=== PATIENT | female | born 1970 | race Caucasian/White ===

== ENCOUNTER 2021-11-23 11:48 | Observation (INO) ==
[2021-11-23] MEDS ORDERED: SODIUM CHLORIDE 0.9% 500 ML IV ONE (12:00)
[2021-11-23 12:35] LABS: Basophils # (auto) 0.02 K/uL (0-0.2); Basophils % (auto) 0.2 %; Eosinophils # (auto) 0.24 K/uL (0-0.5); Eosinophils % (auto) 2.6 %; Hematocrit (blood only) 42.4 % (37-47); Hemoglobin 14.3 g/dL (12.0-16.0); Immature Granulocytes # (auto) 0.03 K/uL (0.00-0.02); Immature Granulocytes % (auto) 0.3 %; Lymphocytes # (auto) 2.83 K/uL (1.2-3.4); Lymphocytes % (auto) 30.9 %; Mean Corpuscular Hemoglobin 30.8 pg (25-34); Mean Corpuscular Hgb Conc 33.7 g/dL (32-36); Mean Corpuscular Volume 91.2 fL (80-100); Mean Platelet Volume 9.2 fL (7.4-10.4); Monocytes # (auto) 0.67 K/uL (0.11-0.59); Monocytes % (auto) 7.3 %; Neutrophils # (auto) 5.38 K/uL (1.4-6.5); Neutrophils % (auto) 58.7 %; Platelet Count 361 K/uL (130-400); RDW Coefficient of Variation 13.6 % (11.5-14.5); RDW Standard Deviation 44.7 fL (36.4-46.3); Red Blood Count 4.65 M/uL (4.2-5.4); White Blood Count 9.17 K/uL (4.8-10.8)
[2021-11-23 12:55] LABS: Albumin Globulin Ratio 1.2 (0.9-2); Albumin Level 4.1 gm/dl (3.4-5.0); Bilirubin,Total 0.5 mg/dl (0.2-1.0); Calcium 9.5 mg/dl (8.5-10.1); Creatinine Clr Calc Pharmacy 79.5 ml/min; Est GFR (African American) 70.2 ml/min; Est GFR (Non-African American) 60.6 ml/min; Globulin 3.4 gm/dl (2.5-4.0); Magnesium 1.8 mg/dl (1.7-2.4); Phosphorus 2.3 mg/dl (2.5-4.9); Potassium 4.1 mmol/L (3.5-5.1); Total Protein 7.5 gm/dl (6.0-8.3)
--- NOTE | 2021-11-23 13:27 | XRay Report ---
XR chest 1V portable HISTORY: 51 years-old Female Chest Pain acute atypical chest pain COMPARISON: CTA chest 11/22/2021 TECHNIQUE: Portable AP view of the chest FINDINGS: The cardiac silhouette is mildly enlarged. Atherosclerosis of the thoracic aorta. Mild linear atelect asis/scarring of the lingula again noted. No pneumothorax, pleural effusion, airspace consolidation o r overt pulmonary edema. Bones appear grossly intact. IMPRESSION: Cardiomegaly without acute process. ACT 112: Negative or not required by law. The above report was generated using voice recognition software. It may contain grammatical, syntax o r spelling errors. Electronically signed by: Carloz Owens M.D. 11/23/2021 1:25 PM
[2021-11-23] MEDS ORDERED: ASPIRIN CHEW 324 MG PO STA (15:04)
--- NOTE | 2021-11-23 16:13 | Emergency Department Note ---
Impression & Plan Exertional shortness of breath, Exertional chest pain, Family history of coronary artery disease ED Provider Note NAME: ASHWIN MUNROE AGE: 51 SEX: F ARRIVES VIA: Walk-In INFORMANT: Patient ED PROVIDER(S): Mario Alberto Huynh MD CHIEF COMPLAINT: Chest pain PLAN: Disposition: Admit MEDICAL DECISION MAKING: The patient is a pleasant 51-year-old woman with a past medical history of IDDM 2, hypertension, GERD, anxiety who presents emergency department referred from her PCPs office for ongoing exertional dyspnea with intermittent exertional chest pressure and back pain. Patient recently had a CT of the chest that was negative. However she reports progressive worsening of symptoms over the past 2 months or more. The patient did have COVID-19 in July and admits that her symptoms have progressed since then. She reports a family history of cardiac disease. She denies any recent fevers, chills, cough, congestion, nausea or vomiting. She reports her symptoms today flared this morning then went away and then returned. She reports at times they are associate with exertion but then other times she is resting. She reports frequently having back pain when she stands up but improves when she sits down and rests. She reports last night she woke from sleep with both chest and back pain. On arrival the patient is in no acute distress, afebrile, BP 150s/90s and otherwise stable vital signs. Mild reproducible anterior CW and mid back disco mfort. EKG does not demonstrate overt acute ischemia. Chest x-ray is negative for acute cardiopulmonary process. WBC H/H and platelets within normal limits. Chemistry without metabolic acidosis. Electrolytes and LFTs without significant abnormality. Initial high- sensitivity troponin 6.5 within normal limits. Lipase is not elevated. TSH within normal limits. Covid-19 RNA, NAAT negative. Heart Score 4, moderate risk. Given the patient's report of worsening exertional symptoms in setting of risk factors reasonable to proceed with further cardiac evaluation. Appreciate consultation with [facility], Dr. Marroquin, and we agreed with plan for admission at this time. Patient agrees with admission plan. Case was discussed with Dr. Epps, [facility] [place] hospitalist, who will evaluate the patient for admission. Triage Nursing notes reviewed and agree them. Prior medical records reviewed Vital Signs: reviewed and remarkable for hypertension. Differential diagnosis: Cardiac ischemia, aortic dissection, pulmonary embolism, pneumothorax, pneumonia, pericarditis, myocarditis, esophageal rupture, GERD, cholecystitis, pancreatitis, musculoskeletal, as well as other pathologies. ER treatment provided: See below. Diagnostics interpreted by me: ECG 1207: Normal sinus rhythm, 85 bpm, no ectopy, no overt ST elevation or depression, QTC 445, QRS 86 ECG 1355: Normal sinus rhythm, 76 bpm, no ectopy, no overt ST elevation or depression, QTC 456, QRS 86 Cardiac Monitoring: An order for continuous cardiac monitoring was placed and demonstrated normal sinus rhythm, 85 bpm, no ectopy. Laboratory studies: See below Imaging studies: See below Consultation(s): Dr. Marroquin, [facility] [facility]. Dr. Epps, [facility] [place] hospitalist. HPI: The patient is a pleasant 51-year-old woman with a past medical history of IDDM 2, hypertension, GERD, anxiety who presents emergency department referred from her PCPs office for ongoing exertional dyspnea with intermittent exertional chest pressure and back pain. Patient recently had a CT of the chest that was negative. However she reports progressive worsening of symptoms over the past 2 months or more. The patient did have COVID-19 in July and admits that her symptoms have progressed since then. She reports a family history of cardiac disease. She denies any recent fevers, chills, cough, congestion, nausea or vomiting. She reports her symptoms today flared this morning then went away and then returned. She reports at times they are associate with exertion but then other times she is resting. She reports frequently having back pain when she stands up but improves when she sits down and rests. She reports last night she woke from sleep with both chest and back pain. ROS: See above HPI for pertinent positives & negatives. A total of 10 systems reviewed and were otherwise negative. VITALS:See Below PHYSICAL EXAMINATION: GENERAL: Awake, alert, well-appearing, in no distress, BMI 51.6. HENT: Normocephalic, atraumatic. Oropharynx unremarkable. EYES: Normal conjunctiva. Sclera non-icteric. NECK: Supple. No nuchal rigidity. FROM. No JVD. RESPIRATORY: Clear to auscultation. CARDIAC: Regular rate, normal rhythm. Extremities warm and well perfused. Pulses equal. ABDOMEN: Soft, non-distended. No tenderness to palpation. No rebound or guarding. No masses. RECTAL: Deferred. MUSCULOSKELETAL: Mild reproducible anterior CW and mid back discomfort. The back is symmetrical on inspection without obvious abnormality. There is no CVA tenderness to palpation. No joint edema. LOWER EXTREMITIES: Calves are equal size bilaterally and non-tender. Scant edema. No discoloration. NEURO: Normal sensorium. No sensory or motor deficits noted. SKIN: No rash or jaundice noted. Mario Alberto Huynh MD Past Med/Surg History Medical History (Updated 11/23/21 @ 22:52 by Mario Alberto Huynh MD) Anxiety GERD (gastroesophageal reflux disease) Hypertension Hypothyroidism Non-insulin dependent diabetes mellitus Family History Other Heart disease Myocardial infarction Social History Smoking Status: Former smoker Second Hand Exposure: No; Hx Alcohol Use: Yes Alcohol type: hard liquor Hx Substance Use: No Preferred Language: Tajik Communication Ability: Effective City Recorder Required: No Beliefs That Will Affect Care: None Current Living Situation: Spouse Feels Safe at Home: Yes Assistive Devices: Contacts and Glasses Allergies Allergies Allergy/AdvReac Type Severity Reaction Status Date / Time codeine Allergy Intermediate Vomiting Unverified 11/23/21 13:28 moxifloxacin [From Avelox] Allergy Intermediate Hives Unverified 11/23/21 13:28 Sulfa (Sulfonamide Allergy Mild Rash Unverified 11/23/21 13:28 Antibiotics) Home Meds Home Medications Medication Instructions Recorded Confirmed bupropion HCl 300 mg 24 hr tablet, 300 mg PO [facility] 11/23/21 11/23/21 extended release irbesartan 300 mg tablet 300 mg PO [facility] 11/23/21 11/23/21 levothyroxine 88 mcg tablet 88 mcg PO [facility] 11/23/21 11/23/21 metformin 500 mg tablet,extended 500 mg PO 11/23/21 11/23/21 release 24 hr metoprolol succinate 25 mg 25 mg PO [facility] 11/23/21 11/23/21 tablet,extended release 24 hr omeprazole 20 mg capsule,delayed 40 mg PO 11/23/21 11/23/21 release pioglitazone 15 mg tablet 15 mg PO [facility] 11/23/21 11/23/21 spironolactone 25 mg tablet 25 mg PO [facility] 11/23/21 11/23/21 Results & Data (ED) Vital Signs Vital Signs - 24 hr 11/23/21 11:54 11/23/21 11:59 11/23/21 14:00 Temperature 36.5 C Temperature Source Temporal Artery Scan Pulse Rate 90 Pulse Rate [Right Finger] 82 78 Pulse Rhythm [Right Finger] Regular Pulse Strength [Right Finger] Normal Normal Respiratory Rate 18 18 18 Respiratory Effort / Characteristics Non-Labored Non-Labored Respiratory Depth Normal Normal Respiratory Pattern Regular Regular Blood Pressure 156/92 H Blood Pressure [Right Arm] 125/86 166/85 H Blood Pressure Mean 113 Blood Pressure Mean [Right Arm] 99 112 Blood Pressure Position [Right Arm] Lying Lying Pulse Oximetry 96 93 96 Oxygen Delivery Method Room Air Room Air Room Air Sepsis Recent Fever Within 48 Hours No Sepsis New/Unexplained Change in Mental Status No Sepsis Action Taken by Nursing No Action Required 11/23/21 16:00 Temperature Temperature Source Pulse Rate Pulse Rate [Right Finger] 76 Pulse Rhythm [Right Finger] Regular Pulse Strength [Right Finger] Normal Respiratory Rate 18 Respiratory Effort / Characteristics Non-Labored Respiratory Depth Normal Respiratory Pattern Regular Blood Pressure Blood Pressure [Right Arm] 148/86 H Blood Pressure Mean Blood Pressure Mean [Right Arm] 106 Blood Pressure Position [Right Arm] Lying Pulse Oximetry 93 Oxygen Delivery Method Room Air Sepsis Recent Fever Within 48 Hours Sepsis New/Unexplained Change in Mental Status Sepsis Action Taken by Nursing Laboratory Data Attestation: I reviewed the patient's lab results. Result diagrams: 11/23/21 12:19 11/23/21 12:19 Lab Results 11/23/21 11/23/21 11/23/21 Range/Units 12:19 12:19 12:19 WBC 9.17 (4.8-10.8) K/uL RBC 4.65 (4.2-5.4) M/uL Hgb 14.3 (12.0-16.0) g/dL Hct 42.4 (37-47) % MCV 91.2 (80-100) fL MCH 30.8 (25-34) pg MCHC 33.7 (32-36) g/dL RDW Std Deviation 44.7 (36.4-46.3) fL RDW Coeff of Oliverio 13.6 (11.5-14.5) % Plt Count 361 (130-400) K/uL MPV 9.2 (7.4-10.4) fL Immature Gran % (Auto) 0.3 % Neut % (Auto) 58.7 % Lymph % (Auto) 30.9 % [place] % (Auto) 7.3 % Eos % (Auto) 2.6 % Baso % (Auto) 0.2 % Neut # (Auto) 5.38 (1.4-6.5) K/uL Lymph # (Auto) 2.83 (1.2-3.4) K/uL [place] # (Auto) 0.67 H (0.11-0.59) K/uL Eos # (Auto) 0.24 (0-0.5) K/uL Baso # (Auto) 0.02 (0-0.2) K/uL Immature Gran # (Auto) 0.03 H (0.00-0.02) K/uL Sodium 139 (136-145) mmol/L Potassium 4.1 (3.5-5.1) mmol/L Chloride 104 (98-107) mmol/L Carbon Dioxide 25 (21-32) mmol/L Anion Gap 10 (3-11) BUN 20 (6-23) mg/dl Creatinine 1.05 (0.6-1.2) mg/dl Est Cr Clr Drug Dosing 79.5 ml/min Est GFR ( Amer) 70.2 ml/min Est GFR (Non-Af Amer) 60.6 ml/min BUN/Creatinine Ratio 19.0 (10-20) Glucose 91 (70-99(Fasting)) mg/dl Calcium 9.5 (8.5-10.1) mg/dl Phosphorus 2.3 L (2.5-4.9) mg/dl Magnesium 1.8 (1.7-2.4) mg/dl Total Bilirubin 0.5 (0.2-1.0) mg/dl AST 32 (13-39) U/L ALT 23 (7-52) U/L Alkaline Phosphatase 100 (34-104) U/L Troponin I High Sens 6.5 (0-14) pg/ml B-Natriuretic Peptide (0-100) pg/ml Total Protein 7.5 (6.0-8.3) gm/dl Albumin 4.1 (3.4-5.0) gm/dl Globulin 3.4 (2.5-4.0) gm/dl Albumin/Globulin Ratio 1.2 (0.9-2) Lipase 18 (11-82) U/L TSH (0.300-4.500) uIu/ml SARS-CoV-2, RNA, NAAT (NEGATIVE) 11/23/21 11/23/21 11/23/21 Range/Units 12:19 12:39 12:45 WBC (4.8-10.8) K/uL RBC (4.2-5.4) M/uL Hgb (12.0-16.0) g/dL Hct (37-47) % MCV (80-100) fL MCH (25-34) pg MCHC (32-36) g/dL RDW Std Deviation (36.4-46.3) fL RDW Coeff of Oliverio (11.5-14.5) % Plt Count (130-400) K/uL MPV (7.4-10.4) fL Immature Gran % (Auto) % Neut % (Auto) % Lymph % (Auto) % [place] % (Auto) % Eos % (Auto) % Baso % (Auto) % Neut # (Auto) (1.4-6.5) K/uL Lymph # (Auto) (1.2-3.4) K/uL Tyler # (Auto) (0.11-0.59) K/uL Eos # (Auto) (0-0.5) K/uL Baso # (Auto) (0-0.2) K/uL Immature Gran # (Auto) (0.00-0.02) K/uL Sodium (136-145) mmol/L Potassium (3.5-5.1) mmol/L Chloride (98-107) mmol/L Carbon Dioxide (21-32) mmol/L Anion Gap (3-11) BUN (6-23) mg/dl Creatinine (0.6-1.2) mg/dl Est Cr Clr Drug Dosing ml/min Est GFR ( Amer) ml/min Est GFR (Non-Af Amer) ml/min BUN/Creatinine Ratio (10-20) Glucose (70-99(Fasting)) mg/dl Calcium (8.5-10.1) mg/dl Phosphorus (2.5-4.9) mg/dl Magnesium (1.7-2.4) mg/dl Total Bilirubin (0.2-1.0) mg/dl AST (13-39) U/L ALT (7-52) U/L Alkaline Phosphatase (34-104) U/L Troponin I High Sens (0-14) pg/ml B-Natriuretic Peptide 35 (0-100) pg/ml Total Protein (6.0-8.3) gm/dl Albumin (3.4-5.0) gm/dl Globulin (2.5-4.0) gm/dl Albumin/Globulin Ratio (0.9-2) Lipase (11-82) U/L TSH 3.955 (0.300-4.500) uIu/ml SARS-CoV-2, RNA, NAAT NEGATIVE (NEGATIVE) Administered Medications Acetaminophen (Acetaminophen 325 Mg Tab) 650 mg PO Q4H PRN PRN Reason: Pain or Fever Stop: 12/23/21 18:53 Last Admin: 11/23/21 22:37 Dose: 650 mg Documented by: [id number] Insulin Aspart (Insulin Aspart Per Unit) 0 units SC [facility] Stop: 12/23/21 18:53 Last Admin: 11/23/21 21:27 Dose: Not Given Documented by: [id number] Admin: 11/23/21 21:27 Dose: Not Given Documented by: [id number] Pantoprazole Sodium (Pantoprazole 40 Mg Tab) 40 mg PO [facility]; Protocol Stop: 12/23/21 20:59 Last Admin: 11/23/21 21:22 Dose: 40 mg Documented by: [id number] Discontinued Medications Aspirin (Aspirin Chew 324 Mg) 324 mg PO NOW STA Stop: 11/23/21 15:05 Last Admin: 11/23/21 15:50 Dose: 324 mg Documented by: [id number] Sodium Chloride (Nss) 500 mls @ 999 mls/hr IV .Q31M ONE Stop: 11/23/21 12:30 Last Infusion: 11/23/21 13:22 Dose: 0 mls/hr Documented by: [id number] Admin: 11/23/21 12:16 Dose: 999 mls/hr Documented by: [id number] Imaging Data Radiologist's Impression: Chest X-Ray 11/23/21 11:59 XR chest 1V portable HISTORY: 51 years-old Female Chest Pain acute atypical chest pain COMPARISON: CTA chest 11/22/2021 TECHNIQUE: Portable AP view of the chest FINDINGS: The cardiac silhouette is mildly enlarged. Atherosclerosis of the thoracic aorta. Mild linear atelectasis/scarring of the lingula again noted. No pneumothorax, pleural effusion, airspace consolidation or overt pulmonary edema. Bones appear grossly intact. IMPRESSION: Cardiomegaly without acute process. ACT 112: Negative or not required by law. The above report was generated using voice recognition software. It may contain grammatical, syntax or spelling errors. Electronically signed by: Carloz Owens M.D. 11/23/2021 1:25 PM Discharge Plan Visit Data Chief Complaint: Shortness of Breath/Dyspnea Stated Complaint: REF BY DR HAMMOND - ABN EKG ED Provider: Mario Alberto Huynh Discharge Problem: Exertional shortness of breath, Exertional chest pain, Family history of coronary artery disease Patient Disposition: Admitted As Inpatient Discharge Instructions Interventions: ED Discharge Assessment Last Done: 11/23/21 18:23
--- NOTE | 2021-11-23 16:51 | History & Physical Report ---
Date of Service November 23, 2021 Assessment & Plan (1) Exertional chest pain: Plan: Exertional chest pain/dyspnea on exertion/hypertension- The patient will be admitted to telemetry for serial cardiac enzymes, serial EKG's, cardiac rhythm monitoring and a 2-D echocardiogram with Dopplers. Troponin normal 6.5, follow serially Continue irbesartan, metoprolol succinate and spironolactone with hold parameters Family history of coronary disease Along with other risk factors, should have a stress echocardiogram prior to discharge if work-up is otherwise negative (2) Exertional shortness of breath: Plan: See above (3) Hypertension: Plan: See above (4) Lower extremity edema: Plan: We will hold pioglitazone Denies excessive sodium intake, and has normal albumin (5) GERD (gastroesophageal reflux disease): Plan: Continue omeprazole/pantoprazole (6) Non-insulin dependent diabetes mellitus: Plan: Hold pioglitazone and metformin Place on Accu-Cheks before meals and at bedtime with NovoLog coverage per scale check hemoglobin A1c (7) Hypothyroidism: Plan: Continue levothyroxine 88 mcg every morning (8) Anxiety: Plan: Continue bupropion History of Present Illness Chief Complaint: The patient presents to the emergency department with complaint of intermittent tightening around lower part of her chest, committee like shortness of breath and back pain of the past few months, worsening over the past few days. Primary Care Provider: Albin Pratt MD The patient is a 51-year-old female with a past medical history including hypertension, hypothyroidism, diabetes mellitus, GERD, lower extremity edema and anxiety. She had intermittent symptoms of lower chest tightness in a band across her chest and abdomen, accompanied by shortness of breath and dyspnea on exertion, and intermittent back pain. She reports that 3 days ago she had severe swelling of her lower extremities bilaterally, where her was able to dimple her skin, that did improve with keeping her legs elevated. If she did undergo CTA of the chest yesterday that was negative for PE. She was reports a few days ago she coughed up a blood clot, but unsure if she coughed it up or if it came from her sinuses. Allergies Allergy/AdvReac Type Severity Reaction Status Date / Time codeine Allergy Intermediate Vomiting Unverified 11/23/21 13:28 moxifloxacin [From Avelox] Allergy Intermediate Hives Unverified 11/23/21 13:28 Sulfa (Sulfonamide Allergy Mild Rash Unverified 11/23/21 13:28 Antibiotics) Home Medications Medication Instructions Recorded Confirmed Type bupropion HCl 300 mg 24 hr tablet, 300 mg PO [facility] 11/23/21 11/23/21 History extended release irbesartan 300 mg tablet 300 mg PO [facility] 11/23/21 11/23/21 History levothyroxine 88 mcg tablet 88 mcg PO [facility] 11/23/21 11/23/21 History metformin 500 mg tablet,extended 500 mg PO 11/23/21 11/23/21 History release 24 hr metoprolol succinate 25 mg 25 mg PO [facility] 11/23/21 11/23/21 History tablet,extended release 24 hr omeprazole 20 mg capsule,delayed 40 mg PO 11/23/21 11/23/21 History release pioglitazone 15 mg tablet 15 mg PO [facility] 11/23/21 11/23/21 History spironolactone 25 mg tablet 25 mg PO [facility] 11/23/21 11/23/21 History Past Med/Surg History Medical History (Updated 11/23/21 @ 17:04 by Onel Epps MD) Anxiety GERD (gastroesophageal reflux disease) Hypertension Hypothyroidism Non-insulin dependent diabetes mellitus Family History Other Heart disease Myocardial infarction Social History Smoking Status: Never smoker Feels Safe at Home: Yes Review of Systems Review of Systems: The patient denies chest pain, palpitations,sore throat, fevers, chills, sweats, weight change, fatigue, nausea, vomiting, diarrhea , constipation, abdominal pain, pelvic pain, blood in urine or stool, dysuria, urinary frequency or urgency, lightheadedness, dizziness, headache, memory loss, loss of consciousness, rash, abnormal bruising or bleeding, imbalance, focal or generalized weakness, numbness or tingling in arms or legs, generalized arthralgias or myalgias, neck pain, or night sweats. The review of systems is otherwise negative other than for that already noted above, and at least 10 systems have been reviewed. Physical Exam Physical Exam: The patient is awake, alert and oriented 3, well developed and well nourished, normocephalic and atraumatic, lying in bed and in no acute distress. HEENT--PERRL, EOMI, mucous membranes and oropharynx normal. Neck--supple. No JVD. No bruits. Thyroid normal, trachea midline, no adenopathy. Heart--normal S1 and S2. No murmurs, rubs or gallops. Lungs--clear bilaterally, no respiratory distress, no accessory muscle use. Abdomen--normal bowel sounds and soft. Nontender. Nondistended, no hernias or masses, no organomegaly. Extremities--no cyanosis or clubbing. No edema. Dermatologic--normal skin turgor, normal color, no abnormal lymph nodes, no rash. Neurologic--cranial nerves II through XII grossly intact. Rheumatologic--normal range of motion. Psychiatric--normal affect. Results & Data Results & Data ([facility]) Vital Signs (Past 12 Hours) Vital Signs Temp Pulse Pulse Resp BP BP Pulse Ox 11/23/21 14:00 78 18 166/85 H 96 11/23/21 11:59 82 18 125/86 93 11/23/21 11:54 36.5 C 90 18 156/92 H 96 Laboratory Results Laboratory Results WBC 9.17 K/uL (4.8-10.8) 11/23/21 12:19 RBC 4.65 M/uL (4.2-5.4) 11/23/21 12:19 Hgb 14.3 g/dL (12.0-16.0) 11/23/21 12:19 Hct 42.4 % (37-47) 11/23/21 12:19 MCV 91.2 fL (80-100) 11/23/21 12:19 MCH 30.8 pg (25-34) 11/23/21 12:19 MCHC 33.7 g/dL (32-36) 11/23/21 12:19 RDW Std Deviation 44.7 fL (36.4-46.3) 11/23/21 12:19 RDW Coeff of Oliverio 13.6 % (11.5-14.5) 11/23/21 12:19 Plt Count 361 K/uL (130-400) 11/23/21 12:19 MPV 9.2 fL (7.4-10.4) 11/23/21 12:19 Immature Gran % (Auto) 0.3 % 11/23/21 12:19 Neut % (Auto) 58.7 % 11/23/21 12:19 Lymph % (Auto) 30.9 % 11/23/21 12:19 [place] % (Auto) 7.3 % 11/23/21 12:19 Eos % (Auto) 2.6 % 11/23/21 12:19 Baso % (Auto) 0.2 % 11/23/21 12:19 Neut # (Auto) 5.38 K/uL (1.4-6.5) 11/23/21 12:19 Lymph # (Auto) 2.83 K/uL (1.2-3.4) 11/23/21 12:19 [place] # (Auto) 0.67 K/uL (0.11-0.59) H 11/23/21 12:19 Eos # (Auto) 0.24 K/uL (0-0.5) 11/23/21 12:19 Baso # (Auto) 0.02 K/uL (0-0.2) 11/23/21 12:19 Immature Gran # (Auto) 0.03 K/uL (0.00-0.02) H 11/23/21 12:19 Sodium 139 mmol/L (136-145) 11/23/21 12:19 Potassium 4.1 mmol/L (3.5-5.1) 11/23/21 12:19 Chloride 104 mmol/L (98-107) 11/23/21 12:19 Carbon Dioxide 25 mmol/L (21-32) 11/23/21 12:19 Anion Gap 10 (3-11) 11/23/21 12:19 BUN 20 mg/dl (6-23) 11/23/21 12:19 Creatinine 1.05 mg/dl (0.6-1.2) 11/23/21 12:19 Est Cr Clr Drug Dosing 79.5 ml/min 11/23/21 12:19 Est GFR ( Amer) 70.2 ml/min 11/23/21 12:19 Est GFR (Non-Af Amer) 60.6 ml/min 11/23/21 12:19 BUN/Creatinine Ratio 19.0 (10-20) 11/23/21 12:19 Glucose 91 mg/dl (70-99(Fasting)) 11/23/21 12:19 Calcium 9.5 mg/dl (8.5-10.1) 11/23/21 12:19 Phosphorus 2.3 mg/dl (2.5-4.9) L 11/23/21 12:19 Magnesium 1.8 mg/dl (1.7-2.4) 11/23/21 12:19 Total Bilirubin 0.5 mg/dl (0.2-1.0) 11/23/21 12:19 AST 32 U/L (13-39) 11/23/21 12:19 ALT 23 U/L (7-52) 11/23/21 12:19 Alkaline Phosphatase 100 U/L (34-104) 11/23/21 12:19 Troponin I High Sens 6.5 pg/ml (0-14) 11/23/21 12:19 Total Protein 7.5 gm/dl (6.0-8.3) 11/23/21 12:19 Albumin 4.1 gm/dl (3.4-5.0) 11/23/21 12:19 Globulin 3.4 gm/dl (2.5-4.0) 11/23/21 12:19 Albumin/Globulin Ratio 1.2 (0.9-2) 11/23/21 12:19 Lipase 18 U/L (11-82) 11/23/21 12:19 TSH 3.955 uIu/ml (0.300-4.500) 11/23/21 12:19 SARS-CoV-2, RNA, NAAT NEGATIVE (NEGATIVE) 11/23/21 12:45 Impressions Chest X-Ray 11/23/21 11:59 XR chest 1V portable HISTORY: 51 years-old Female Chest Pain acute atypical chest pain COMPARISON: CTA chest 11/22/2021 TECHNIQUE: Portable AP view of the chest FINDINGS: The cardiac silhouette is mildly enlarged. Atherosclerosis of the thoracic aorta. Mild linear atelectasis/scarring of the lingula again noted. No pneumothorax, pleural effusion, airspace consolidation or overt pulmonary edema. Bones appear grossly intact. IMPRESSION: Cardiomegaly without acute process. ACT 112: Negative or not required by law. The above report was generated using voice recognition software. It may contain grammatical, syntax or spelling errors. Electronically signed by: Carloz Owens M.D. 11/23/2021 1:25 PM Code Status & VTE Plan Code Status Full code VTE Prophylaxis Plan VTE Prophylaxis will be ordered: Yes PG Care Time/CCT Total # of Minutes Spent Total Time Spent with Patient: Total time spent is greater than 50% in coordination of care (as documented) at patient's floor/unit and/or counseling patient: Coding Level of Care Code INT OBSERVATION CARE 70M LVL 3 Diagnoses Anxiety F41.9 Non-insulin dependent diabetes mellitus Hypertension I10 GERD (gastroesophageal reflux disease) K21.9 Hypothyroidism E03.9 Exertional chest pain R07.9 Exertional shortness of breath R06.02 Lower extremity edema R60.0
[2021-11-23] MEDS ORDERED: ONDANSETRON INJ 2 MG/ML 2 ML VIAL IV PRN (18:54)
[2021-11-23] MEDS ORDERED: DEXTROSE 50% 50 ML SYRINGE IV PRN (18:54)
[2021-11-23] MEDS ORDERED: GLUCOSE 40% GEL 15 GM TUBE PO PRN (18:54)
[2021-11-23] MEDS ORDERED: CARBOHYDRATES FOR HYPOGLYCEMIA PO PRN (18:54)
[2021-11-23] MEDS ORDERED: GLUCAGON FOR INJ 1 MG VIAL SQ PRN (18:54)
[2021-11-23] MEDS ORDERED: GLUCOSE 10 TABS/TUBE PO PRN (18:54)
[2021-11-23] MEDS ORDERED: PANTOprazole 40 MG TAB PO SCH (21:00)
[2021-11-23] MEDS: INSULIN ASPART PER UNIT SC SCH ×2 (21:22→21:27)
--- NOTE | 2021-11-23 22:21 | Communication Note ---
Date of Service: November 23, 2021 Informed by patient's RN that patient's pressures were on the softer side (80- 90/60s) and she was reporting a dull, L-sided chest pain around her L breast. As ked to place patient in Trendelenburg. Went up to evaluate patient. Resting comfortably, talking on the phone. No pallor or diaphoresis. Endorses mild, dull-like chest pain that "pushes back when I breath in." She describes it (and points to) the area immediately lateral to the mid sternal line, around the 9 o'clock position of the L breast. She denies shortness of breath. Maybe a little "wooziness," but no lightheadedness. Mild persistent nausea that has been ongoing all day. BP at that time ~92/60 in the room. No pallor. HEENT - no JVD, +MMM. Cardiac - NRRR, +S1/S2 w/o m/r/g. Pulmonary - Lungs CTAB w/o crackles or wheezes. Abdomen - soft/nt/nd. Extremities - no peripheral edema, capillary refill < 1 second. Given focality of the pain, patient gave permission to perform breast exam - nu rse keg header present through its entirety. Surgical scar noted at the inferior border of the L breast with +TTP at the ~8-9 o'clock position with fibroglandular fullness, no discreet mass. She endorsed that this recreated the pain she was feeling throughout the day and prior to my arrival. ECG obtained prior to my arrival did not demonstrate new conduction/repolarization abnormalities compared to earlier in the day. Chest Pain - note reviewed, history and family history still concerning for CAD until proven otherwise. CTA negative. However, the fact that it was reproducible on exam may point to a musculoskeletal/breast-related etiology if work-up is otherwise negative. Patient has h/o lumpectomy, per her report, on the left side. Consider repeat US while here or as outpatient. Apply warm compresses. Low threshold to give nitroglycerin / opioids p.r.n. Hypotension - asymptomatic, responded well to 250cc bolus, and evidence of very good perfusion on exam. No clear infectious etiology. No PE or e/o tamponade on CTA. No e/o myocardial injury on labs or ECG at this time. Possibly vagal vs. dehydration? Will monitor and initiate LR @ 100cc/hr x 500cc. Monitor. In close contact with patient's RN Resident Activity Tracking Resident Involvement: Resident Care Provided Care Provided: Adult Hospital Medicine
[2021-11-23] MEDS: ACETAMINOPHEN 325 MG TAB PO PRN (22:37)
[2021-11-24] MEDS: LACTATED RINGER'S 1,000 ML IV SCH ×2 (00:23→10:44)
[2021-11-24] MEDS ORDERED: LEVOTHYROXINE SODIUM 88 MCG TABLET PO SCH (06:30)
[2021-11-24 07:19] LABS: Estimated Average Glucose 134 mg/dl; Hemoglobin A1C 6.3 % (4.5-5.6)
[2021-11-24] MEDS: INSULIN ASPART PER UNIT SC SCH ×3 (07:58→17:07)
[2021-11-24] MEDS: ACETAMINOPHEN 325 MG TAB PO PRN ×2 (08:01→14:32)
[2021-11-24] MEDS ORDERED: IRBESARTAN 150 MG TAB PO SCH (09:00)
[2021-11-24] MEDS ORDERED: METOPROLOL SUCC 25MG EXT REL TAB PO SCH (09:00)
[2021-11-24] MEDS ORDERED: SPIRONOLACTONE 25 MG TAB PO SCH (09:00)
[2021-11-24] MEDS ORDERED: buPROPion XL 300 MG TABCR PO SCH (09:00)
[2021-11-24] MEDS ORDERED: KETOROLAC TROMETHAMINE 15 MG/ML VIAL IV ONE (12:11)
[2021-11-24] MEDS ORDERED: BUTALBITAL/ACETAMIN/CAFFEINE TAB PO STA (17:05)
--- NOTE | 2021-11-24 18:23 | XCELERA ---
[id number]
--- NOTE | 2021-11-24 18:37 | Discharge Summary ---
Date of Service November 24, 2021 Admission HPI Per Admitting Provider The patient is a 51-year-old female with a past medical history including hypertension, hypothyroidism, diabetes mellitus, GERD, lower extremity edema and anxiety. She had intermittent symptoms of lower chest tightness in a band across her chest and abdomen, accompanied by shortness of breath and dyspnea on exertion, and intermittent back pain. She reports that 3 days ago she had severe swelling of her lower extremities bilaterally, where her was able to dimple her skin, that did improve with keeping her legs elevated. If she did undergo CTA of the chest yesterday that was negative for PE. She was reports a few days ago she coughed up a blood clot, but unsure if she coughed it up or if it came from her sinuses. Principal Diagnosis Musculoskeletal chest pain Discharge Exam Constitutional WD/WN, vitals as above Eyes + anicteric sclerae ENMT external ear and nose normal, oropharynx normal Neck trachea midline, no thyromegaly Respiratory normal respiratory effort, lungs clear to auscultation Cardiovascular RRR, no murmur, no edema Chest (Breasts) Chest: normal inspection of chest Additional Comments: Direct +TTP over left costochondral junction that exactly reproduces her pain Gastrointestinal (Abdomen) normal bowel sounds, soft, nontender, no hepatosplenomegaly Musculoskeletal Extremities: extremities normal to inspection; no cyanosis and no clubbing Skin no rashes, warm and dry Neurologic moves all extremities and awake; no focal motor deficits Psychiatric A+Ox3, euthymic affect Lymphatic no lymphedema Discharge Data Allergies Allergy/AdvReac Type Severity Reaction Status Date / Time codeine Allergy Intermediate Vomiting Unverified 11/23/21 13:28 moxifloxacin [From Avelox] Allergy Intermediate Hives Unverified 11/23/21 13:28 Sulfa (Sulfonamide Allergy Mild Rash Unverified 11/23/21 13:28 Antibiotics) Consultations 11/23/21 15:03 ED Decision to Admit Stat Procedures Performed Chest xray Ordered Studies Stress ECHO Hospital Course (1) Chest pain: Presented with constant chest pain for 2 days, felt like a tightness all across her chest, directly tender to palpation over left costochondral junction. The pain was constant even at rest and with exertion. High sensitivity troponin negative x 5 ECGs without ischemia Stress ECHO technically limited due to body habitus. Also only exercised for 1:47 and achieved 4.2 METS and was hypertensive but did not have chest pain induced by exercise. She was very SOB with exertion. She did achieve 86% of MHR and had grossly normal LV function, cannot entirely exclude wall motion abnormalities. Her chest pain did go away nicely with one dose of IV toradol, but did return later when she got up and moved around. Given that pain constant for 2 days, troponins all negative, grossly normal EF on stress ECHO, reproducible on exam, and went away with toradol all points towards costochondritis/MSK as etiology of chest pain While she does have morbid obesity, DMII, and HTN in addition to severe deconditioning all as risk factors for heart disease, therefore I would recommend that she pursue a nuclear medicine cardiac stress test as an outpatient for risk stratification. Advised ibuprofen for the costochondritis and rest from heavy lifting until pain is completely improved. (2) Exertional shortness of breath: Secondary to morbid obesity and severe deconditioning Recommend weight loss (3) Hypertension: Blood pressures are controlled here except with exercise she became significantly hypertensive Continue home irbesartan, metoprolol, spironolactone Recommend weight loss and follow-up with PCP for blood pressures (4) Lower extremity edema: Denies excessive sodium intake, and has normal albumin Most likely secondary to morbid obesity with increased intra-abdominal pressure on pelvic veins Echo recommend weight loss Continue spironolactone (5) GERD (gastroesophageal reflux disease): Continue PPI (6) Non-insulin dependent diabetes mellitus: Continue home pioglitazone and metformin Hemoglobin A1c here well controlled at 6.3% (7) Hypothyroidism: Continue levothyroxine 88 mcg every morning (8) Anxiety: Continue bupropion Disposition-stable for discharged home with close PCP follow-up Total Time Total Time Spent Total Time Spent (In Minutes): 35 minutes Total Time Includes: Examination of the Patient, Discharge Planning, Medication Reconciliation and Communication With Other Providers (Cardiology-Dr. Saucedo) Discharge Plan Discharge Items Patient Disposition: Home - Self-Care Reason For Visit: CHEST PAIN, MERCADO Discharge Diagnosis: Chest pain-costochondritis Condition on Discharge: Good Activity: As commented below Lifting: No more than 5 pounds Bathing: No limitations Exercise/Sports: Gradually increase as tolerated Driving/Machine Use: No limitations Non-emergency contact: Primary Care Provider Call non-emergency contact if: you have any medication questions, your symptoms worsen, your pain is not controlled, your pain is worsening and your temperature is above 101 Follow-up/Referrals: Albin Pratt MD [Primary Care Provider] - (Follow up within 1 week) Diet: Carb Consistent or DM2 and Heart Healthy Addtl Attending Provider Instructions: You were admitted for chest pain and had a workup of your heart that was all normal. Your pain is likely coming from inflammation of the cartilage between your rib and your sternum (breast bone). This can be treated with short term co urses of antiinflammatory medications such as ibuprofen/Motrin, stretching, and rest from heavy lifting. Please follow up with your PCP within 1 week. Pending Studies at Discharge: No Stand-Alone Forms: My [facility] [email or web address], Smoking Cessation Medications and DC Order Prescriptions: New ibuprofen 200 mg tablet 600 mg PO Q6H PRN (Reason: pain) Qty: 30 RF: 0 Continued pioglitazone 15 mg Tablet 15 mg PO QAM RF: 0 spironolactone 25 mg tablet 25 mg PO QAM RF: 0 levothyroxine 88 mcg tablet 88 mcg PO QAM RF: 0 omeprazole 20 mg capsule,delayed release(DR/EC) 40 mg PO HS RF: 0 metoprolol succinate 25 mg tablet extended release 24 hr 25 mg PO QAM RF: 0 metformin 500 mg tablet extended release 24 hr 500 mg PO HS RF: 0 irbesartan 300 mg tablet 300 mg PO QAM RF: 0 bupropion HCl 300 mg tablet extended release 24 hr 300 mg PO QAM RF: 0 Discharge Orders: Discharge Order (Routine); Ordered 11/24/21 Ordered By: Sylvia Mora/Other Patient Handouts: Managing Type 2 Diabetes Admission Data Admit Date/Time: 11/23/21 16:12 Attending Provider: Sylvia Pathak Admit Provider: Onel Epps Primary Care Provider: Albin Pratt Other Providers: Onel Epps Other Interventions: Discharge Summary Assessment (RN) Last Done: 11/24/21 13:53 Coding Level of Care Code 38311 OBS Care - Discharge Diagnoses Exertional shortness of breath R06.02 Hypertension I10 Lower extremity edema R60.0 GERD (gastroesophageal reflux disease) K21.9 Non-insulin dependent diabetes mellitus Hypothyroidism E03.9 Anxiety F41.9 Chest pain R07.9
--- NOTE | 2021-11-25 08:59 | Electrocardiogram Report ---
Test Reason : Blood Pressure : / mmHG Vent. Rate : 085 BPM Atrial Rate : 086 BPM P-R Int : 000 ms QRS Dur : 086 ms QT Int : 374 ms P-R-T Axes : 000 017 038 degrees QTc Int : 445 ms Sinus rhythm Normal ECG No previous ECGs available Confirmed by Romain Marroquin ([id number]) on 11/25/2021 8:59:05 AM Referred By: Confirmed By:Romain Marroquin
--- NOTE | 2021-11-25 09:06 | Electrocardiogram Report ---
Test Reason : Blood Pressure : / mmHG Vent. Rate : 076 BPM Atrial Rate : 076 BPM P-R Int : 136 ms QRS Dur : 086 ms QT Int : 406 ms P-R-T Axes : 000 008 032 degrees QTc Int : 456 ms Normal sinus rhythm Normal ECG When compared with ECG of 23-NOV-2021 12:07, (unconfirmed) No significant change Confirmed by Romain Marroquin ([id number]) on 11/25/2021 9:05:44 AM Referred By: Albin Pratt Confirmed By:Romain Marroquin
--- NOTE | 2021-11-25 10:23 | Electrocardiogram Report ---
Test Reason : Blood Pressure : / mmHG Vent. Rate : 075 BPM Atrial Rate : 075 BPM P-R Int : 142 ms QRS Dur : 088 ms QT Int : 414 ms P-R-T Axes : 029 049 072 degrees QTc Int : 462 ms Normal sinus rhythm Normal ECG When compared with ECG of 23-NOV-2021 13:55, (unconfirmed) No significant change was found Confirmed by Romain Marroquin ([id number]) on 11/25/2021 10:23:20 AM Referred By: Albin Pratt Confirmed By:Romain Marroquin
== END 2021-11-24 19:14 | disposition home or self-care (01) ==
LOC: ED 11:48 → 2N 11:48 → SUATTDRO 16:12 → 2N 18:23